=== PATIENT | female | born 1995 | race Hispanic/Latino ===

== ENCOUNTER 2018-07-30 09:50 | Emergency (ER) | payer OTHER ==
--- OUTSIDE RECORDS SUMMARY | 2018-07-30 09:52 | XMS REPORT ---
:1995 [facility] Address [address] [place] [address] Dr. Mari [address] [place] [id number] Care Team Providers Name Role Phone Unavailable Unavailable Unavailable Problems This patient has no known problems. Allergies, Adverse Reactions, Alerts This patient has no known allergies or adverse reactions. Medications This patient has no known medications.
--- NOTE | 2018-07-30 10:04 | ER ---
Nurse's Notes [facility] Name: Mohini Gomez Age: 22 yrs Sex: Female : 1995 Arrival Date: 07/30/2018 Time: 09:52 Bed 15 Private MD: Diagnosis: Decreased movements, second trimester Presentation: 07/30 09:55 Presenting complaint: Patient states: "I am 19 weeks and I haven't felt the aa5 baby move in about a week and a half". Pt denies pain, denies vaginal bleeding. 09:55 Transition of care: patient was not received from another setting of care. Onset of aa5 symptoms was July 2018. 09:55 Acuity: CONNIE 3 aa5 09:56 Risk Assessment: Do you want to hurt yourself or someone else? Patient reports no tw2 desire to harm self or others. Initial Sepsis Screen: Does the patient meet any 2 criteria? No. Patient's initial sepsis screen is negative. Does the patient have a suspected source of infection? No. Patient's initial sepsis screen is negative. Care prior to arrival: None. 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 - Social history:: Smoking status: . - Ebola Screening: : Patient denies travel to an Ebola-affected area in the 21 days before illness onset. Screenin:56 Abuse screen: Denies threats or abuse. Nutritional screening: No deficits noted. tw2 Tuberculosis screening: No symptoms or risk factors identified. Fall Risk None identified. Assessment: 10:02 General: Appears in no apparent distress. uncomfortable, Behavior is calm, cooperative, jl7 anxious. Pain: Denies pain. Neuro: Level of Consciousness is awake, alert, obeys commands, Oriented to person, place, time, situation. Cardiovascular: Patient's skin is warm and dry. Respiratory: Airway is patent Respiratory effort is even, unlabored, Respiratory pattern is regular, symmetrical. Derm: Skin is pink, warm \\T\\ dry. Vital Signs: 09:56 BP 125 / 80; Pulse 79; Resp 18 S; Temp 98.2(TE); Pulse Ox 99% on R/A; Weight 57.15 kg aa5 (R); Height 5 ft. 1 in. (154.94 cm) (R); Pain 0/10; 09:56 Body Mass Index 23.81 (57.15 kg, 154.94 cm) aa5 Vitals: 10:02 Heart Tones 144 bpm. jl7 ED Course: 09:52 Patient arrived in ED. aa5 09:52 Marilou Stockton FNP-C [facility]. kb 09:52 Dave Coleman MD is Attending Physician. kb 09:52 Patient placed in an exam room, on a stretcher. aa5 09:54 Shaye Marquis, JEANA is Primary Nurse. jl7 09:56 Bed in low position. Call light in reach. Adult w/ patient. Pulse ox on. NIBP on. tw2 09:56 Arm band placed on. tw2 09:59 Triage completed. aa5 10:02 No provider procedures requiring assistance completed. Patient did not have IV access jl7 during this emergency room visit. Administered Medications: No medications were administered Outcome: 10:03 Discharge ordered by . kb 10:07 Discharged to home ambulatory. jl7 10:07 Condition: stable 10:07 Discharge instructions given to patient, Instructed on discharge instructions, follow up and referral plans. Demonstrated understanding of instructions, follow-up care. 10:07 Patient left the ED. jl7 Signatures: Marilou Stockton FNP-C FNP-Ckb Calderon, Audri, RN RN aa5 Bryanna Guerra RN RN tw2 Shaye Marquis RN RN jl7
--- NOTE | 2018-07-30 10:05 | EDPHYS ---
Physician Documentation [facility] Name: Mohini Gomez Age: 22 yrs Sex: Female : 1995 Arrival Date: 07/30/2018 Time: 09:52 Bed 15 Private MD: ED Physician Dave Coleman HPI: 07/30 10:01 This 22 yrs old Female presents to ER via Ambulatory with complaints of kb decreased movement. 10:01 The patient presents to the emergency department with no movement, last felt the kb baby move approximately 10 day(s) ago. The estimated gestational age is 19 weeks. course: care: private OB physician, Dr. Pack, the patient's last check was July 19, 2018. Previous pregnancies: in previous pregnancies patient has had. Associated signs and symptoms: The patient has no apparent associated signs or symptoms, Pertinent negatives: abdominal pain, vaginal bleeding, vaginal discharge. The patient has not experienced similar symptoms in the past. The patient has not recently seen a physician. Pt reports she hasn't felt movement in a week and a half. Called OB this morning and was told to come to ER for evaluation. Denies any pain or vaginal bleeding. . 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 - Social history:: Smoking status: . - Ebola Screening: : Patient denies travel to an Ebola-affected area in the 21 days before illness onset. ROS: 10:00 Constitutional: Negative for fever, chills, and weight loss, Cardiovascular: Negative kb for chest pain, palpitations, and edema, Respiratory: Negative for shortness of breath, cough, wheezing, and pleuritic chest pain, Abdomen/GI: Negative for abdominal pain, nausea, vomiting, diarrhea, and constipation, : Negative for injury, bleeding, discharge, and swelling, MS/Extremity: Negative for injury and deformity, Skin: Negative for injury, rash, and discoloration, Neuro: Negative for headache, weakness, numbness, tingling, and seizure. Exam: 10:00 Constitutional: This is a well developed, well nourished patient who is awake, alert, kb and in no acute distress. Head/Face: Normocephalic, atraumatic. Chest/axilla: Normal chest wall appearance and motion. Nontender with no deformity. No lesions are appreciated. Cardiovascular: Regular rate and rhythm with a normal S1 and S2. No gallops, murmurs, or rubs. Normal PMI, no JVD. No pulse deficits. Respiratory: Lungs have equal breath sounds bilaterally, clear to auscultation and percussion. No rales, rhonchi or wheezes noted. No increased work of breathing, no retractions or nasal flaring. Skin: Warm, dry with normal turgor. Normal color with no rashes, no lesions, and no evidence of cellulitis. MS/ Extremity: Pulses equal, no cyanosis. Neurovascular intact. Full, normal range of motion. Neuro: Awake and alert, GCS 15, oriented to person, place, time, and situation. Cranial nerves II-XII grossly intact. Motor strength 5/5 in all extremities. Sensory grossly intact. Cerebellar exam normal. Normal gait. 10:00 Abdomen/GI: Inspection: gravid appearance, is noted, Bowel sounds: normal, Palpation: abdomen is soft and non-tender. Vital Signs: 09:56 BP 125 / 80; Pulse 79; Resp 18 S; Temp 98.2(TE); Pulse Ox 99% on R/A; Weight 57.15 kg aa5 (R); Height 5 ft. 1 in. (154.94 cm) (R); Pain 0/10; 09:56 Body Mass Index 23.81 (57.15 kg, 154.94 cm) aa5 MDM: 09:52 Patient medically screened. kb 10:00 Data reviewed: vital signs, nurses notes. Data interpreted: Pulse oximetry: on room air kb is 99 %. Interpretation: normal. Counseling: I had a detailed discussion with the patient and/or guardian regarding: the historical points, exam findings, and any diagnostic results supporting the discharge/admit diagnosis, the need for outpatient follow up, an OB/Gyne specialist, to return to the emergency department if symptoms worsen or persist or if there are any questions or concerns that arise at home. ED course: Pt reassured after FHT obtained. Educated to return for any other concerns, abd pain, vaginal bleeding. Verbal understanding received. Pt appears relieved. . 07/30 09:55 Order name: FHT's; Complete Time: 10:02 kb Administered Medications: No medications were administered Disposition: 10:24 Co-signature as Attending Physician, Dave Coleman MD I agree with the assessment and kdr plan of care. Disposition: 07/30/18 10:03 Discharged to Home. Impression: Decreased movements, second trimester. - Condition is Stable. - Discharge Instructions: Second Trimester of , [id number]. - Medication Reconciliation Form, Thank You Letter, Antibiotic Education, Prescription Opioid Use form. - Follow up: Private Physician; When: 2 - 3 days; Reason: Recheck today's complaints, Continuance of care, Re-evaluation by your physician. Follow up: Emergency Department; When: As needed; Reason: Worsening of condition. Signatures: Marilou Stockton, SANDBLASTER SUPERVISOR-C SANDBLASTER SUPERVISOR-Ckb Dave Coleman MD MD kdr Nicky Teixeira, RN RN aa5 Bryanna Guerra RN RN tw2 Shaye Marquis RN RN jl7 Corrections: (The following items were deleted from the chart) 10:03 10:01 Pt reports she hasn't felt movement in a week and a half. Called OB this kb morning and was told to come to ER. . kb 10:07 10:03 07/30/2018 10:03 Discharged to Home. Impression: Decreased movements, jl7 second trimester. Condition is Stable. Forms are Medication Reconciliation Form, Thank You Letter, Antibiotic Education, Prescription Opioid Use. Follow up: Private Physician; When: 2 - 3 days; Reason: Recheck today's complaints, Continuance of care, Re-evaluation by your physician. Follow up: Emergency Department; When: As needed; Reason: Worsening of condition. kb
== END 2018-07-30 10:07 | disposition home or self-care (01) ==
LOC: ER 09:50
DX: O36.8120 Decreased fetal movements, second trimester, not applicable or unspecified (principal); Z3A.19 19 weeks gestation of pregnancy
CPT/HCPCS: 99283